=== PATIENT | male | born 1975 | race Two or more races ===

== ENCOUNTER 2016-09-27 12:47 | Emergency (ER) | payer OTHER ==
[~2016-09-27] VITALS: Ht 177.8 cm; Wt 87.9 kg
[2016-09-27 12:50] VITALS: BP 143/77
== END 2016-09-27 14:32 | disposition home or self-care (01) ==
LOC: ED 14:20
DX: S80.11XA Contusion of right lower leg, initial encounter (principal); M79.662 Pain in left lower leg; F17.200 Nicotine dependence, unspecified, uncomplicated; X58.XXXA Exposure to other specified factors, initial encounter; Y93.89 Activity, other specified; Y92.89 Other specified places as the place of occurrence of the external cause; Y99.8 Other external cause status
CPT/HCPCS: 99284